=== PATIENT | female | born 1940 | race Caucasian/White ===

== ENCOUNTER 2017-04-15 17:30 | Outpatient (CLI) | payer OTHER ==
--- NOTE | 2017-04-15 18:05 | DIAGNOSTIC IMAGING REPORT ---
PROCEDURE: XR FOOT 3 VIEWS - LEFT INDICATION: LEFT FOOT PAIN TECHNIQUE: Three views. COMPARISON: None. FINDINGS: There is extensive osteoarthritis throughout all of the tarsal-metatarsal joints. There is also osteoarthritis involving the first MTP joint and the interphalangeal joint of the great toe. IMPRESSION: 1. Tarsometatarsal osteoarthritis.
== END 2017-04-15 23:00 ==
LOC: XR SRH 17:30
DX: M19.072 Primary osteoarthritis, left ankle and foot (principal)

== ENCOUNTER 2017-04-19 10:32 | Outpatient (CLI) | payer OTHER ==
--- NOTE | 2017-04-19 11:29 | DIAGNOSTIC IMAGING REPORT ---
PROCEDURE: DEXA BONE DENSITY STUDY CLINICAL INDICATION: SCREENING COMPARISON: None. FINDINGS: LUMBAR SPINE: Bone mineral density 1.161 g/cm2, T score 1.0 normal LEFT HIP: Bone mineral density 0.918 g/cm2, T score -0.2 normal LEFT FEMORAL NECK: Bone mineral density 0.675 g/cm2, T score -1.6 osteopenia FRACTURE RISK CALCULATION ( when applicable): 10-year fracture risk of a major osteoporotic fracture and of a hip fracture not reported because of a prior hip or vertebral fracture. (T score greater or equal to -1.0 to: NORMAL) (T score from -1.1 to -2.4: OSTEOPENIA) (T score ess than or equal to -2.5: OSTEOPOROSIS) IMPRESSION: 1. Osteopenia left femoral neck
--- NOTE | 2017-04-19 17:20 | DIAGNOSTIC IMAGING REPORT ---
PROCEDURE: MG BILATERAL SCREENING W/CAD INDICATION: Screening, personal history of cervical cancer, history of prior stereotactic breast biopsy. TECHNIQUE: Standard CC and MLO views bilaterally. Computer aided detection was used. COMPARISON: None available although the patient reports prior mammograms in 2016 in [place] FINDINGS: Mildly dense fibroglandular tissue is present bilaterally. There is a surgical clips centrally at a mid depth in the left breast. There is an adjacent area of lucency on the CC view. More medial to this, there is a vague glandular density, and a 5 mm rounded, well-circumscribed density. On the MLO view in the left breast centrally, there is a mildly irregular area of architectural distortion surrounding a lucent region, potentially previously biopsied tissue. IMPRESSION: 1. Possible postbiopsy changes centrally in the left breast, although comparison with prior studies is recommended. In the absence of these, further mammographic and sonographic evaluation is recommended. 2. An addendum to this report will be generated when prior images become available for comparison. In the absence of these, the patient will be contacted. RESULT CODE: 0- Incomplete; needs additional evaluation. A. A negative report should not delay biopsy if a dominant or clinically suspicious mass is present. 10-15% of cancers are not identified by x-ray. B. A negative report may reinforce clinical impression. C. Adenosis and dense breasts may obscure an underlying neoplasm. D. False positive reports average 6-10%. E.. A yearly screening mammogram is recommended. A reminder letter will be scheduled.
== END 2017-04-19 23:00 | disposition home or self-care (01) ==
LOC: MAM SRH 10:32
DX: Z12.31 Encounter for screening mammogram for malignant neoplasm of breast (principal); M85.88 Other specified disorders of bone density and structure, other site